=== PATIENT | female | born 1940 | race Caucasian/White ===

== ENCOUNTER → 2017-01-06 | Outpatient (CLI) | payer MEDICARE | LOC: WI 08:46 | PROVIDERS: ATTEND Internal Medicine Gastroenterology | DX: K52.831 Collagenous colitis (principal); R10.11 Right upper quadrant pain | CPT/HCPCS: 76705 ==

== ENCOUNTER → 2017-01-21 | Outpatient (CLI) | payer MEDICARE | LOC: RAD 12:23 | PROVIDERS: ATTEND Physician Assistant | DX: M50.30 Other cervical disc degeneration, unspecified cervical region (principal) | CPT/HCPCS: 72141 ==

== ENCOUNTER → 2018-03-01 | Outpatient (CLI) | payer MEDICARE ==
[2018-03-01 10:40] LABS: ABSOLUTE EOSINOPHILS # (AUTO) 0.1 10^3/uL (0.0-0.6); ABSOLUTE LYMPHOCYTES (AUTO) 1.5 10^3/uL (0.5-4.7); ABSOLUTE MONOCYTES (AUTO) 0.6 10^3/uL (0.1-1.4); ABSOLUTE NEUT (AUTO) 3.6 10^3/uL (1.7-8.2); BASOPHILS % (AUTO) 0.5 % (0-2); EOSINOPHILS % (AUTO) 1.2 % (0-6); HEMATOCRIT 38.3 % (36.0-47.0); HEMOGLOBIN 12.7 g/dL (12.0-15.5); LYMPHOCYTES % (AUTO) 26.2 % (13-45); MEAN CORPUSCULAR HEMOGLOBIN 23.7 pg (27.0-33.4); MEAN CORPUSCULAR HGB CONC 33.1 g/dL (32.0-36.0); MEAN CORPUSCULAR VOLUME 72 fl (80-97); MONOCYTES % (AUTO) 9.8 % (3-13); PLATELET COUNT 236 10^3/uL (150-450); RED BLOOD COUNT 5.35 10^6/uL (3.72-5.28); RED CELL DISTRIBUTION WIDTH 15.9 % (11.5-14.0); SEGMENTED NEUTROPHILS % (AUTO) 62.3 % (42-78); TOTAL CELLS COUNTED % (AUTO) 100 %; WHITE BLOOD COUNT 5.8 10^3/uL (4.0-10.5)
[2018-03-01 11:10] LABS: ALANINE AMINOTRANSFERASE 26 U/L (9-52); ALBUMIN 4.3 g/dL (3.5-5.0); ALKALINE PHOSPHATASE 64 U/L (38-126); ANION GAP 9 (5-19); ASPARTATE AMINO TRANSFERASE 22 U/L (14-36); BILIRUBIN,DIRECT 0.3 mg/dL (0.0-0.4); BILIRUBIN,TOTAL 0.5 mg/dL (0.2-1.3); BLOOD UREA NITROGEN 28 mg/dL (7-20); CALCIUM 10.8 mg/dL (8.4-10.2); CARBON DIOXIDE 31 mmol/L (22-30); CHLORIDE 103 mmol/L (98-107); GLUCOSE 112 mg/dL (75-110); POTASSIUM 5.4 mmol/L (3.6-5.0); SODIUM 142.8 mmol/L (137-145); TOTAL PROTEIN 7.2 g/dL (6.3-8.2); TRIGLYCERIDES 159 mg/dL (<150)
[2018-03-01 11:21] LABS: DIRECT LDL 121 mg/dL (<100)
[2018-03-01 11:22] LABS: VLDL CHOLESTEROL 31.8 mg/dL (10-31)
[2018-03-01 11:23] LABS: FREE T4 (FREE THYROXINE) 1.29 ng/dL (0.78-2.19)
[2018-03-01 11:37] LABS: THYROID STIMULATING HORMONE 0.87 uIU/mL (0.47-4.68)
== END ==
LOC: OD 10:12
PROVIDERS: ATTEND Internal Medicine
DX: E03.9 Hypothyroidism, unspecified (principal); E78.00 Pure hypercholesterolemia, unspecified; I10 Essential (primary) hypertension; Z79.899 Other long term (current) drug therapy
CPT/HCPCS: 36415; 80053; 80061; 84439; 84443; 85025

== ENCOUNTER 2018-03-28 13:31 | Emergency (ER) | payer MEDICARE ==
[2018-03-28] MEDS ORDERED: RABIES IMMUNE GLOBULIN INJ/PF 300 UNIT/2 ML SDV IM ONE ×2 (14:20→15:00)
--- NOTE | 2018-03-28 14:24 | ER Document Report ---
ED Animal Bite - General Chief Complaint: Cat Bite Stated Complaint: POSSIBLE CAT BITE Time Seen by Provider: 03/28/18 14:09 Mode of Arrival: Ambulatory Information source: Patient Notes: 77-year-old female presents to ED for complaint of cat bites or scratches to her right lower leg. She has 5 injuries to this leg. They look like probable scratches except for one. She states that the neighborhood cat and she does not know for sure who the cat belongs to or if it is immunizations are up-to- date. She states the cat does look healthy but she is concerned and would like to have the rabies shots. She states her tetanus shot is a year ago. TRAVEL OUTSIDE OF THE [place] IN LAST 30 DAYS: No - HPI Location of injury: [place] Severity of injury: Scratched, Bitten Onset: This morning Quality of pain: Sharp Pain Level: 3 Severity: Moderate Context of attack: "Provoked" attack - She states she stepped on his tail or foot Type of animal: Cat Appearance of animal: Appeared well Animal's immunizations: Unknown Animal captured or known: No Animal control notified: Yes Animal control form completed: Yes - Related Data Allergies/Adverse Reactions: adhesive [Adhesive] Allergy (Verified 03/28/18 13:32) latex [Latex] Allergy (Verified 03/28/18 13:32) Penicillins Allergy (Verified 03/28/18 13:32) Sulfa (Sulfonamide Antibiotics) Allergy (Verified 03/28/18 13:32) dordin Allergy (Uncoded 03/28/18 13:32) Past Medical History - General Information source: Patient - Social History Smoking Status: Never Smoker Cigarette use (# per day): No Chew tobacco use (# tins/day): No Smoking Education Provided: No Frequency of alcohol use: None Drug Abuse: None Lives with: Family Family History: Reviewed & Not Pertinent Patient has suicidal ideation: No Patient has homicidal ideation: No - Past Medical History Cardiac Medical History: Reports: Hx Hypercholesterolemia, Hx Hypertension Pulmonary Medical History: Reports: None EENT Medical History: Reports: None Endocrine Medical History: Reports: Hx Hypothyroidism Renal/ Medical History: Reports: None Malignancy Medical History: Reports: None GI Medical History: Reports: Hx Colonoscopy, Hx Endoscopy, Other - Colitis Musculoskeltal Medical History: Reports None Skin Medical History: 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 Psychiatric Medical History: Reports: Hx Anxiety, Hx Depression Traumatic Medical History: Reports: None Infectious Medical History: Reports: None Past Surgical History: Reports: Hx Breast Surgery - breast biopsy, Hx Dilation and Curettage - Immunizations Immunizations up to date: Yes Hx Diphtheria, Pertussis, Tetanus Vaccination: Yes Hx Pneumococcal Vaccination: 09/26/08 Review of Systems - Review of Systems Constitutional: No symptoms reported EENT: No symptoms reported Cardiovascular: No symptoms reported Respiratory: No symptoms reported Gastrointestinal: No symptoms reported Genitourinary: No symptoms reported Female Genitourinary: No symptoms reported Musculoskeletal: No symptoms reported Skin: Other - Cat bite/scratches to the right lower leg Hematologic/Lymphatic: No symptoms reported Neurological/Psychological: No symptoms reported -: Yes All other systems reviewed and negative Physical Exam - Vital signs Vitals: Temp Pulse Resp BP Pulse Ox 98.7 F 79 16 150/66 H 96 03/28/18 13:36 03/28/18 13:36 03/28/18 13:36 03/28/18 13:36 03/28/18 13:36 Interpretation: Normal - General General appearance: Appears well, Alert - HEENT Head: Normocephalic, Atraumatic Eyes: Normal Pupils: PERRL - Respiratory Respiratory status: No respiratory distress Chest status: Nontender Breath sounds: Normal Chest palpation: Normal - Cardiovascular Rhythm: Regular Heart sounds: Normal auscultation Murmur: No - Abdominal Inspection: Normal Distension: No distension Bowel sounds: Normal Tenderness: Nontender Organomegaly: No organomegaly - Back Back: Normal, Nontender - Extremities General upper extremity: Normal inspection, Nontender, Normal color, Normal ROM , Normal temperature General lower extremity: Nontender, Normal color, Normal ROM, Normal temperature , Normal weight bearing. No: George's sign Calf: Other - Cat bite/scratches 5 - Neurological Neuro grossly intact: Yes Cognition: Normal Orientation: AAOx4 [place] Coma Scale Eye Opening: Spontaneous [place] Coma Scale Verbal: Oriented [place] Coma Scale Motor: Obeys Commands [place] Coma Scale Total: 15 Speech: Normal Motor strength normal: LUE, RUE, LLE, RLE Sensory: Normal - Psychological Associated symptoms: Normal affect, Normal mood - Skin Skin Temperature: Warm Skin Moisture: Dry Skin Color: Normal Location of irregularity: Extremities - Cat scratches/bites to the right lower leg Course - Re-evaluation Re-evalutation: 03/28/18 21:36 Patient was given the rabies vaccine and immunoglobulin for her cat bite because she did not know his cat it was or if it had any immunizations. Patient states her tetanus is up-to-date. Patient was started on doxycycline as she is allergic to penicillin. Patient to follow-up with her primary doctor. Patient was given instructions on cleaning the wounds and use an antibiotic ointment to the areas. - Vital Signs Vital signs: Temp Pulse Resp BP Pulse Ox 97.8 F 71 14 184/75 H 97 03/28/18 15:27 03/28/18 15:27 03/28/18 15:27 03/28/18 15:27 03/28/18 15:27 Discharge - Discharge Clinical Impression: Cat bite of right lower leg Qualifiers: Encounter type: initial encounter Qualified Code(s): S81.851A - Open bite, right lower leg, initial encounter HTN (hypertension) Qualifiers: Hypertension type: unspecified Qualified Code(s): I10 - Essential (primary) hypertension Condition: Stable Disposition: HOME, SELF-CARE Additional Instructions: Animal Bites Animal bites are often heavily contaminated with bacteria. In spite of thorough cleansing and proper treatment, these wounds frequently become infected. Bite wounds of the hands are especially prone to complications. Bites are dressed, if possible. Large wounds may require suturing after internal cleansing. Because of infection risk, some large wounds must remain unstitched. Your doctor is trained to advise you on the best treatment for your bite. Call the doctor at once if the wound becomes red, swollen, warm, increasingly painful, or if it begins to drain. Danger signs also include red streaks up the involved extremity, swollen glands in the groin or under the arm , or fever and chills. The risk of rabies from domestic animals is very low. Bats, sick animals, and wild animals may expose you to rabies. The physician, or the health department, will inform you if you will need to receive the rabies vaccine. Doxycycline Doxycycline (Vibramycin, Doryx) is an antibiotic of the tetracycline family. This type of drug is useful for infections of the respiratory tract and genital tract, and is sometimes used for intestinal infections. Unlike most tetracyclines, doxycycline can be taken with food. It is longer acting, and (usually) less prone to side effects than regular tetracycline. Tetracycline antibiotics can stain immature teeth and SHOULD NOT BE TAKEN BY CHILDREN, NURSING MOTHERS, OR WOMEN. Tetracyclines can make you more prone to sunburn. Abdominal cramping, nausea, and diarrhea are occasional side effects. Women may experience vaginal yeast infections. Call the doctor at once if you develop hives, itching, shortness of breath , or lightheadedness. SOAP CLEANSING: Gently wash the wound daily using a mild soap (like Ivory, Phisoderm, Neutrogena). Use warm water, rubbing gently until all debris, ooze, and crusting have been washed from the wound. Allow to dry briefly (about 10 minutes) after cleaning. Repeat this cleansing at least three times a day for the first two days and then once or twice a day. ANTIBIOTIC OINTMENT PROTECTION: Your wounds are such that dressing them is not practical or optional. After cleansing, you should apply a thin coating of antibiotic ointment ( Bacitracin, not Neosporin) to the wounds at least three times daily. This lessens infection risk, and may decrease the amount of scarring. Use a q-tip or dull butter knife, not your finger, to apply this ointment. Any debris or ooze which builds up in the ointment should be gently rubbed off with a sterile gauze pad. Harder crusting may need to be gently scrubbed off with a clean wash cloth with soap and warm water, perhaps applying a warm, wet wash cloth to the wound for ten minutes first. Development of redness, severe itching, or blistering may mean allergy to the ointment. See the doctor. PROPHYLACTIC ANTIBIOTIC: The antibiotics which have been prescribed are designed to decrease the risk of infection. Only certain types of wounds benefit from this -- the typical cut, scrape, or burn DOES NOT require antibiotics. Of course, infection can still occur despite the use of prophylactic antibiotics. Your wound will heal with less chance of an infectious complication if you take the medication as directed. The most important dose is the FIRST dose, so don't delay filling the prescription! Acetaminophen Acetaminophen may be taken for pain relief or fever control. It's much safer than aspirin, offering a wider range of "safe" dosages. It is safe during . Some brand names are Tylenol, Panadol, Datril, Anacin 3, Tempra, and Liquiprin. Acetaminophen can be repeated every four hours. The following are maximum recommended dosages: WEIGHT Dose Drops Elixir Chewable( 80mg) (LBS.) drprs=droppers tsp=teaspoon 6 40 mg .4 ml (1/2) 6-11 80 mg .8 ml (full) 1/2 tsp 1 tab 12-16 120 mg 1 1/2 drprs 3/4 tsp 1 1/2 tabs 17-23 160 mg 2 drprs 1 tsp 2 tabs 24-30 240 mg 3 drprs 1 1/2 tsp 3 tabs 30-35 320 mg 2 tsp 4 tabs 36-41 360 mg 2 1/4 tsp 4 1 /2 tabs 42-47 400 mg 2 1/2 tsp 5 tabs 48-53 480 mg 3 tsp 6 tabs 54-59 520 mg 3 1/4 tsp 6 1 /2 tabs 60-64 560 mg 3 1/2 tsp 7 tabs 65-70 600 mg 3 3/4 tsp 7 1 /2 tabs 71-76 640 mg 4 tsp 8 tabs 77-82 720 mg 4 1/2 tsp 9 tabs 83-88 800 mg 5 tsp 10 tabs >89 pounds or adults 650 mg to 900 mg Acetaminophen can be repeated every four hours. Maximum daily dose not to exceed 4000 mg. These maximum recommended dosages are slightly higher than the dosages written on the product container, but these dosages are very safe and well below the toxic dosage for acetaminophen. Rabies Prophyllaxis Rabies immunization can prevent infection with the rabies virus. This virus is always fatal if it reaches the nervous system. Exposure to an infected animal's saliva requires a series of shots. If you're already immunized, you may need only a booster shot. It's critical for you to follow the exact schedule of immunizations. After the first shot, we give repeat doses in 3 days, 7 days, and 14 days. The repeat doses can also be given through the Health Department or by special arrangement with your doctor. Ibuprofen or acetaminophen can be used for aching and swelling at the injection site. Call the doctor or return if you develop increasing pain, fever , chills, or spreading redness, or if you become short of breath or faint. FOLLOW-UP CARE: If you have been referred to a physician for follow-up care, call the physician s office for an appointment as you were instructed or within the next two days. If you experience worsening or a significant change in your symptoms, notify the physician immediately or return to the Emergency Department at any time for re-evaluation. Prescriptions: Doxycycline Hyclate 100 mg PO BID #20 tablet Forms: Elevated Blood Pressure Referrals: DEREK MEDINA MD [Primary Care Provider] - Follow up as needed
[2018-03-28] MEDS ORDERED: DOXYCYCLINE HYCLATE 100 MG TABLET PO ONE (14:31)
[2018-03-28] MEDS ORDERED: ONDANSETRON 4 MG TAB.RAPDIS PO ONE (15:29)
[2018-03-31] MEDS ORDERED: RABIES VACCINE (PCEC)/PF 2.5 UNIT/1 ML KIT IM ONE (11:00)
== END 2018-03-28 15:46 | disposition home or self-care (01) ==
LOC: ER 13:31
DX: S81.851A Open bite, right lower leg, initial encounter (principal); W55.01XA Bitten by cat, initial encounter; Z91.040 Latex allergy status; E78.00 Pure hypercholesterolemia, unspecified; I10 Essential (primary) hypertension; E03.9 Hypothyroidism, unspecified; Z88.2 Allergy status to sulfonamides; Z88.0 Allergy status to penicillin; Z23 Encounter for immunization
CPT/HCPCS: 99283; 90471; 90376; A9270 ×2; S0119

== ENCOUNTER 2018-05-21 09:58 | Emergency (ER) | payer MEDICARE ==
[2018-05-21] MEDS ORDERED: ASPIRIN 81 MG TABLET, CHEWABLE PO ONE (10:42)
[2018-05-21] MEDS ORDERED: MAG HYDROX/AL HYDROX/SIMETH SUSP 30 ML UDCUP PO ONE (10:42)
[2018-05-21] MEDS ORDERED: LIDOCAINE 2% VISCOUS SOLN 20 ML UDCUP PO ONE (10:42)
[2018-05-21] MEDS ORDERED: METOCLOPRAMIDE HCL ORAL SOLN 10 MG/10 ML UDCUP PO ONE (10:42)
--- NOTE | 2018-05-21 10:53 | ER Document Report ---
ED Medical Screen (RME) - General Chief Complaint: Chest Pain Stated Complaint: CHEST PAIN Time Seen by Provider: 05/21/18 10:42 TRAVEL OUTSIDE OF THE [place] 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 She has had a similar episode in the past approximately one year prior which time she underwent an evaluation and was told that everything checked out okay. - Related Data Allergies/Adverse Reactions: adhesive [Adhesive] Allergy (Verified 05/21/18 10:41) latex [Latex] Allergy (Verified 05/21/18 10:41) Penicillins Allergy (Verified 05/21/18 10:41) Sulfa (Sulfonamide Antibiotics) Allergy (Verified 05/21/18 10:41) dordin Allergy (Uncoded 05/21/18 10:41) Past Medical History - Social History Chew tobacco use (# tins/day): No Frequency of alcohol use: None Drug Abuse: None - Past Medical History Cardiac Medical History: Reports: Hx Hypercholesterolemia, Hx Hypertension Endocrine Medical History: Reports: Hx Hypothyroidism Renal/ Medical History: Denies: Hx Peritoneal Dialysis GI Medical History: Reports: Hx Colonoscopy, Hx Endoscopy Psychiatric Medical History: Reports: Hx Anxiety, Hx Depression Past Surgical History: Reports: Hx Breast Surgery - breast biopsy, Hx Dilation and Curettage, Hx Gynecologic Surgery - D&C, Hx Tubal Ligation - Immunizations Immunizations up to date: Yes Hx Diphtheria, Pertussis, Tetanus Vaccination: Yes Physical Exam - Vital signs Vitals: Temp Pulse Resp BP Pulse Ox 98.1 F 71 14 148/61 H 94 05/21/18 10:11 05/21/18 10:11 05/21/18 10:11 05/21/18 10:11 05/21/18 10:11 Course - Re-evaluation Re-evalutation: 05/21/18 10:58 77-year-old female presents for evaluation of atypical chest pain with some bloating and pressure. She does have some chest discomfort and abdominal discomfort associated with this. Does have a history of colitis. Has never had a heart attack that she knows of. Her EKG is abnormal but without any obvious change from previous. We will initiate a cardiac evaluation for this patient administer a GI cocktail for potential gastritis colitis pain. Patient will be given aspirin have 2 troponins drawn be placed on monitor. - Vital Signs Vital signs: Temp Pulse Resp BP Pulse Ox 98.1 F 71 14 148/61 H 94 05/21/18 10:11 05/21/18 10:11 05/21/18 10:11 05/21/18 10:11 05/21/18 10:11 Doctor's Discharge - Discharge Referrals: DEREK MEDINA MD [Primary Care Provider] - Follow up as needed
[2018-05-21 11:36] LABS: ABSOLUTE EOSINOPHILS # (AUTO) 0.1 10^3/uL (0.0-0.6); ABSOLUTE LYMPHOCYTES (AUTO) 1.5 10^3/uL (0.5-4.7); ABSOLUTE MONOCYTES (AUTO) 0.5 10^3/uL (0.1-1.4); ABSOLUTE NEUT (AUTO) 2.9 10^3/uL (1.7-8.2); BASOPHILS % (AUTO) 0.5 % (0-2); EOSINOPHILS % (AUTO) 1.4 % (0-6); HEMATOCRIT 37.3 % (36.0-47.0); HEMOGLOBIN 12.5 g/dL (12.0-15.5); LYMPHOCYTES % (AUTO) 30.3 % (13-45); MEAN CORPUSCULAR HGB CONC 33.4 g/dL (32.0-36.0); MEAN CORPUSCULAR VOLUME 72 fl (80-97); MONOCYTES % (AUTO) 9.8 % (3-13); PLATELET COUNT 262 10^3/uL (150-450); RED BLOOD COUNT 5.19 10^6/uL (3.72-5.28); RED CELL DISTRIBUTION WIDTH 16.6 % (11.5-14.0); TOTAL CELLS COUNTED % (AUTO) 100 %; WHITE BLOOD COUNT 5.1 10^3/uL (4.0-10.5)
--- NOTE | 2018-05-21 11:43 | RADIOLOGY REPORT (SQ) ---
EXAM DESCRIPTION: CHEST 2 VIEWS COMPLETED DATE/TIME: 05/21/2018 11:35 am REASON FOR STUDY: chest pain COMPARISON: 10/27/2014. NUMBER OF VIEWS: Two view. TECHNIQUE: Frontal and lateral radiographic views of the chest acquired. LIMITATIONS: None. FINDINGS: LUNGS AND PLEURA: No opacities, masses or pneumothorax. No pleural effusion. Attenuated bl ood vessels and flattened vito-diaphragms. MEDIASTINUM AND HILAR STRUCTURES: No masses. No contour abnormalities. HEART AND VASCULAR STRUCTURES: Heart normal in size and contour. No evidence for failure. BONES: No acute findings. HARDWARE: None in the chest. OTHER: No other significant finding. IMPRESSION: COPD. NO ACUTE RADIOGRAPHIC FINDING IN THE CHEST. TECHNICAL DOCUMENTATION: JOB ID: [id number] [employer]- All Rights Reserved Reading location - IP/workstation name: [email or web address]
[2018-05-21 11:55] LABS: ALANINE AMINOTRANSFERASE 24 U/L (9-52); ALBUMIN 4.4 g/dL (3.5-5.0); ALKALINE PHOSPHATASE 65 U/L (38-126); ANION GAP 12 (5-19); ASPARTATE AMINO TRANSFERASE 21 U/L (14-36); BILIRUBIN,DIRECT 0.3 mg/dL (0.0-0.4); BILIRUBIN,TOTAL 0.5 mg/dL (0.2-1.3); BLOOD UREA NITROGEN 22 mg/dL (7-20); CALCIUM 10.1 mg/dL (8.4-10.2); CARBON DIOXIDE 26 mmol/L (22-30); CHLORIDE 104 mmol/L (98-107); CREATINE KINASE 48 U/L (30-135); GLUCOSE 111 mg/dL (75-110); POTASSIUM 4.3 mmol/L (3.6-5.0); SODIUM 142.3 mmol/L (137-145); TOTAL PROTEIN 7.3 g/dL (6.3-8.2)
[2018-05-21 12:14] LABS: CREATINE KINASE MB 1.37 ng/mL (<4.55)
[2018-05-21 12:21] LABS: TROPONIN I < 0.012 ng/mL
--- NOTE | 2018-05-21 13:39 | ER Document Report ---
ED General - General Chief Complaint: Chest Pain Stated Complaint: CHEST PAIN Time Seen by Provider: 05/21/18 10:42 TRAVEL OUTSIDE OF THE [place] IN LAST 30 DAYS: No - HPI Patient complains to provider of: Epigastric pain radiating to the chest Notes: Patient coming in for epigastric pain and burning sensation radiating anterior chest ongoing for greater than 12 hours. Patient states pain started after eating chicken fried steak night prior. Patient denies any cardiac history patient denies any nausea vomiting fevers or chills. Patient resting comfortably upon my evaluation. Patient denies any recent travel requesting to drink her Ensure and boost drink upon my evaluation patient states that her pain has not totally resolved after receiving a GI cocktail in the triage area - Related Data Allergies/Adverse Reactions: adhesive [Adhesive] Allergy (Verified 05/21/18 10:41) latex [Latex] Allergy (Verified 05/21/18 10:41) Penicillins Allergy (Verified 05/21/18 10:41) Sulfa (Sulfonamide Antibiotics) Allergy (Verified 05/21/18 10:41) dordin Allergy (Uncoded 05/21/18 10:41) Past Medical History - Social History Smoking Status: Never Smoker Chew tobacco use (# tins/day): No Frequency of alcohol use: None Drug Abuse: None Family History: Reviewed & Not Pertinent Patient has suicidal ideation: No Patient has homicidal ideation: No - Past Medical History Cardiac Medical History: Reports: Hx Hypercholesterolemia, Hx Hypertension Endocrine Medical History: Reports: Hx Hypothyroidism Renal/ Medical History: Denies: Hx Peritoneal Dialysis GI Medical History: Reports: Hx Colonoscopy, Hx Endoscopy Psychiatric Medical History: Reports: Hx Anxiety, Hx Depression Past Surgical History: Reports: Hx Breast Surgery - breast biopsy, Hx Dilation and Curettage, Hx Gynecologic Surgery - D&C, Hx Tubal Ligation - Immunizations Immunizations up to date: Yes Hx Diphtheria, Pertussis, Tetanus Vaccination: Yes Hx Pneumococcal Vaccination: 09/26/08 Review of Systems - Review of Systems Constitutional: No symptoms reported EENT: No symptoms reported Cardiovascular: No symptoms reported Respiratory: No symptoms reported Gastrointestinal: Abdominal pain Genitourinary: No symptoms reported Female Genitourinary: No symptoms reported Musculoskeletal: No symptoms reported Skin: No symptoms reported Hematologic/Lymphatic: No symptoms reported Neurological/Psychological: No symptoms reported -: Yes All other systems reviewed and negative Physical Exam - Vital signs Vitals: Temp Pulse Resp BP Pulse Ox 98.1 F 71 14 148/61 H 94 05/21/18 10:11 05/21/18 10:11 05/21/18 10:11 05/21/18 10:11 05/21/18 10:11 Interpretation: Normal - General General appearance: Appears well, Alert - HEENT Head: Normocephalic, Atraumatic Eyes: Normal Pupils: PERRL - Respiratory Respiratory status: No respiratory distress Chest status: Nontender Breath sounds: Normal Chest palpation: Normal - Cardiovascular Rhythm: Regular Heart sounds: Normal auscultation Murmur: No - Abdominal Inspection: Normal Distension: No distension Bowel sounds: Normal Tenderness: Nontender Organomegaly: No organomegaly - Back Back: Normal, Nontender - Extremities General upper extremity: Normal inspection, Nontender, Normal color, Normal ROM , Normal temperature General lower extremity: Normal inspection, Nontender, Normal color, Normal ROM , Normal temperature, Normal weight bearing. No: George's sign - Neurological Neuro grossly intact: Yes Cognition: Normal Orientation: AAOx4 Paul Coma Scale Eye Opening: Spontaneous Paul Coma Scale Verbal: Oriented Paul Coma Scale Motor: Obeys Commands Paul Coma Scale Total: 15 Speech: Normal Motor strength normal: LUE, RUE, LLE, RLE Sensory: Normal - Psychological Associated symptoms: Normal affect, Normal mood - Skin Skin Temperature: Warm Skin Moisture: Dry Skin Color: Normal Course - Re-evaluation Re-evalutation: 05/21/18 15:37 The patient has atypical chest pain as the patient's chest pain is not suggestive of pulmonary embolus, cardiac ischemia, aortic dissection, or other serious etiology. Given the extremely low risk of these diagnoses further testing and evaluation for these possibilities does not appear to be indicated at this time. The patient has been instructed to return if the symptoms worsen or change in any way. EKG troponin chest x-ray did not show any critical pathology. Patient will be discharged home follow-up with primary care physician more likely has reflux gastritis for the patient's etiology pain. Patient was advised not to eat fried or greasy food. Patient states understanding tolerating p.o. here - Vital Signs Vital signs: Temp Pulse Resp BP Pulse Ox 98.4 F 88 18 148/74 H 100 05/21/18 14:03 05/21/18 14:03 05/21/18 14:03 05/21/18 14:03 05/21/18 14:03 - Laboratory Result Diagrams: 05/21/18 10:53 05/21/18 10:53 Laboratory results interpreted by me: 05/21/18 05/21/18 10:53 10:53 MCV 72 L MCH 24.0 L RDW 16.6 H BUN 22 H Glucose 111 H Discharge - Discharge Clinical Impression: Epigastric abdominal pain Condition: Good Disposition: HOME, SELF-CARE Instructions: Reflux Disease (GERD) ([facility]) Additional Instructions: Your evaluation is consistent with acid reflux causing her pain. Your EKG and cardiac enzymes chest x-ray did not show any acute cause. Your liver enzymes and pancreatic enzymes are also negative. The medication that we gave you is there to aid with acid reflux. Would recommend a bland diet avoiding foods that are fried or greasy. Please take medications as prescribed return to the ER for any concerning issues follow-up with your primary care physician approximately one week. Prescriptions: Omeprazole 20 mg PO DAILY #20 capsule. Sucralfate [Carafate 1 gm Tablet] 1 gm PO ACHS #120 tablet Forms: Return to Work Referrals: DEREK MEDINA MD [Primary Care Provider] - Follow up as needed
[2018-05-21 14:04] VITALS: BP 148/74
--- NOTE | 2018-05-22 07:50 | EKG REPORT ---
SEVERITY:- ABNORMAL ECG - SINUS RHYTHM BORDERLINE ST ABNORMALITIES, DIFFUSE : Confirmed by: Jm Lugo MD 22-May-2018 07:48:31
== END 2018-05-21 14:04 | disposition home or self-care (01) ==
LOC: ER 09:58
DX: R10.13 Epigastric pain (principal); R07.89 Other chest pain; I10 Essential (primary) hypertension; Z91.048 Other nonmedicinal substance allergy status; Z91.040 Latex allergy status; Z88.0 Allergy status to penicillin; Z88.2 Allergy status to sulfonamides
CPT/HCPCS: 93005; 99285; 36415; 82553; 82550; 83690; 85025; 80053; 84484; 71046; 93010; A9270 ×2; J3490

== ENCOUNTER → 2018-11-23 | Outpatient (CLI) | payer MEDICARE ==
--- NOTE | 2018-11-23 12:30 | RADIOLOGY REPORT (SQ) ---
EXAM DESCRIPTION: MRI LUMBAR SPINE WITHOUT COMPLETED DATE/TIME: 11/23/2018 11:26 am REASON FOR STUDY: LOW BACK PAIN (M54.5) M54.5 LOW BACK PAIN COMPARISON: MRI lumbar spine 04/05/2014 TECHNIQUE: Sagittal and Axial imaging includes T1, T2, STIR and gradient echo sequences. Coronal T2/ HASTE imaging. LIMITATIONS: None. FINDINGS: VISUALIZED UPPER ABDOMEN: Limited evaluation. No acute or suspicious findings suggested. SEGMENTATION: No transitional anatomy. The lowest well-developed disc space is labeled L5-S1. ALIGNMENT: Grade 1 anterolisthesis of L4 over L5 related to advanced facet arthropathy. VERTEBRAE: Intact. BONE MARROW: Mild fatty reactive vertebral body endplate changes, upper endplate L3, lower endplate L 5 DISC SIGNAL: Diffuse decreased T2 weighted intervertebral disc signal. POSTERIOR ELEMENTS: Generally intact. No pars defect evident. HARDWARE: None in the spine. CORD AND CONUS: Normal in size and signal intensity. Conus at the appropriate level. SOFT TISSUES: No aortic aneurysm seen. No bulky retroperitoneal adenopathy or mass. No paraspinal mas s or fluid. T11-12: At the upper edge of the field of view. Minimal posterior disc bulging. Mild bilateral fac et hypertrophy. No central or foraminal encroachment. T12-L1: Very mild posterior disc bulging and mild facet and ligament hypertrophy. No central or for aminal stenosis. L1-L2: Mild diffuse posterior disc bulging, mild bilateral facet and ligament hypertrophy. Borderlin e central canal narrowing. Mild bilateral foraminal narrowing without exiting L1 nerve root impingem ent. L2-L3: Broad diffuse posterior disc bulging, bulky bilateral facet and ligament hypertrophy causes mo derate central canal stenosis best shown on axial T2 image 10. There is mild bilateral foraminal jim rowing without exit L2 nerve root impingement. L3-L4: Broad diffuse posterior disc bulge and bulky bilateral facet and ligament hypertrophy causes m oderate to high-grade central canal stenosis best shown on axial T2 image 16. There is mild bilatera l inferior foraminal narrowing without exiting L3 nerve root impingement. L4-L5: High-grade central canal stenosis results from grade 1 anterolisthesis of L4 over L5, bulky bi lateral facet and ligament hypertrophy, and broad diffuse posterior disc bulge. This is best shown o n axial T2 image 22. There is mild bilateral L4-5 foraminal narrowing without exiting L4 nerve root impingement. L5-S1: Minimal posterior disc bulging, mild facet and ligament hypertrophy. No central or foraminal encroachment SACRUM: Visualized upper sacrum intact. OTHER: No other significant findings. IMPRESSION: High-grade central canal stenosis at L4-5 TECHNICAL DOCUMENTATION: JOB ID: [id number] [employer]- All Rights Reserved Reading location - IP/workstation name: [email or web address]
== END ==
LOC: RAD 10:18
PROVIDERS: ATTEND Physician Assistant
DX: M54.5 Low back pain (principal); M48.061 Spinal stenosis, lumbar region without neurogenic claudication
CPT/HCPCS: 72148

== ENCOUNTER → 2019-01-24 | Outpatient (CLI) | payer MEDICARE ==
--- NOTE | 2019-01-24 11:36 | RADIOLOGY REPORT (SQ) ---
EXAM DESCRIPTION: L SPINE 2 VIEWS COMPLETED DATE/TIME: 01/24/2019 10:29 am REASON FOR STUDY: SPINAL STENOSIS, LUMBAR REGION (M48.061), SPONDYLOLISTHESIS, LUMBAR REGION M48.061 SPINAL STENOSIS, LUMBAR REGION WITHOUT NEUROGENIC CL M43.16 SPONDYLOLISTHESIS, LUMBAR REGION COMPARISON: MRI of 11/23/2018 NUMBER OF VIEWS: Two views. TECHNIQUE: AP and lateral radiographic images acquired of the lumbar spine. LIMITATIONS: None. FINDINGS: MINERALIZATION: Normal. SEGMENTATION: Normal. No transitional anatomy. ALIGNMENT: Mild anterolisthesis L4 with respect L5. VERTEBRAE: Maintained height. No fracture or worrisome bone lesion. DISCS: Mild disc space narrowing L4-L5. POSTERIOR ELEMENTS: Pedicles and facets are intact. No pars defect or posterior arch defects. HARDWARE: None in the spine. PARASPINAL SOFT TISSUES: Normal. PELVIS: Intact as visualized. No fractures or worrisome bone lesions. SI joints intact. OTHER: No other significant finding. IMPRESSION: Mild anterolisthesis L4 with respect L5. Mild disc space narrowing L4-L5. TECHNICAL DOCUMENTATION: JOB ID: [id number] [employer]- All Rights Reserved Reading location - IP/workstation name: [email or web address]
--- NOTE | 2019-01-24 11:42 | RADIOLOGY REPORT (SQ) ---
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 16 SPONDYLOLISTHESIS, LUMBAR REGION COMPARISON: None. TECHNIQUE: Lateral flexion and extension radiographs of the spine. NUMBER OF VIEWS: Two views. LIMITATIONS: None. FINDINGS: 1 cm anterolisthesis L4 with respect L5 stable in flexion and extension. OTHER: Mild disc space narrowing L4-L5. IMPRESSION: NO RADIOGRAPHIC EVIDENCE OF ABNORMAL MOTION. TECHNICAL DOCUMENTATION: JOB ID: [id number] [employer]- All Rights Reserved Reading location - IP/workstation name: [email or web address]
== END ==
LOC: RAD 10:10
PROVIDERS: ATTEND Physician Assistant
DX: M48.061 Spinal stenosis, lumbar region without neurogenic claudication (principal); M43.16 Spondylolisthesis, lumbar region
CPT/HCPCS: 72100; 72120

== ENCOUNTER → 2019-03-05 | Outpatient (CLI) | payer MEDICARE ==
[2019-03-05 11:05] LABS: ABSOLUTE EOSINOPHILS # (AUTO) 0.1 10^3/uL (0.0-0.6); ABSOLUTE LYMPHOCYTES (AUTO) 1.6 10^3/uL (0.5-4.7); ABSOLUTE MONOCYTES (AUTO) 0.6 10^3/uL (0.1-1.4); ABSOLUTE NEUT (AUTO) 2.4 10^3/uL (1.7-8.2); BASOPHILS % (AUTO) 0.6 % (0-2); EOSINOPHILS % (AUTO) 1.4 % (0-6); HEMATOCRIT 36.2 % (36.0-47.0); HEMOGLOBIN 11.8 g/dL (12.0-15.5); LYMPHOCYTES % (AUTO) 34.2 % (13-45); MEAN CORPUSCULAR HEMOGLOBIN 22.5 pg (27.0-33.4); MEAN CORPUSCULAR HGB CONC 32.7 g/dL (32.0-36.0); MEAN CORPUSCULAR VOLUME 69 fl (80-97); MONOCYTES % (AUTO) 12.1 % (3-13); PLATELET COUNT 230 10^3/uL (150-450); RED BLOOD COUNT 5.27 10^6/uL (3.72-5.28); RED CELL DISTRIBUTION WIDTH 16.5 % (11.5-14.0); SEGMENTED NEUTROPHILS % (AUTO) 51.7 % (42-78); TOTAL CELLS COUNTED % (AUTO) 100 %; WHITE BLOOD COUNT 4.6 10^3/uL (4.0-10.5)
[2019-03-05 11:24] LABS: ALANINE AMINOTRANSFERASE 22 U/L (9-52); ALBUMIN 4.4 g/dL (3.5-5.0); ALKALINE PHOSPHATASE 63 U/L (38-126); ANION GAP 9 (5-19); ASPARTATE AMINO TRANSFERASE 20 U/L (14-36); BILIRUBIN,DIRECT 0.3 mg/dL (0.0-0.4); BILIRUBIN,TOTAL 0.5 mg/dL (0.2-1.3); BLOOD UREA NITROGEN 24 mg/dL (7-20); CALCIUM 10.4 mg/dL (8.4-10.2); CARBON DIOXIDE 27 mmol/L (22-30); CHLORIDE 104 mmol/L (98-107); CHOLESTEROL 171.82 mg/dL (0-200); GLUCOSE 115 mg/dL (75-110); POTASSIUM 4.4 mmol/L (3.6-5.0); SODIUM 140.2 mmol/L (137-145); TRIGLYCERIDES 117 mg/dL (<150)
[2019-03-05 11:47] LABS: DIRECT LDL 111 mg/dL (<100)
[2019-03-05 11:58] LABS: FREE T4 (FREE THYROXINE) 1.19 ng/dL (0.78-2.19)
[2019-03-05 12:12] LABS: THYROID STIMULATING HORMONE 1.09 uIU/mL (0.47-4.68)
== END ==
LOC: OD 09:38
PROVIDERS: ATTEND Internal Medicine
DX: E78.00 Pure hypercholesterolemia, unspecified (principal); I10 Essential (primary) hypertension; E03.9 Hypothyroidism, unspecified; R73.9 Hyperglycemia, unspecified; R63.4 Abnormal weight loss; Z79.899 Other long term (current) drug therapy
CPT/HCPCS: 36415; 80053; 80061; 84439; 84443; 85025

== ENCOUNTER → 2020-05-23 | Outpatient (CLI) | payer MEDICARE ==
[2020-05-23 11:24] LABS: ABSOLUTE EOSINOPHILS # (AUTO) 0.1 10^3/uL (0.0-0.6); ABSOLUTE LYMPHOCYTES (AUTO) 1.6 10^3/uL (0.5-4.7); ABSOLUTE MONOCYTES (AUTO) 0.5 10^3/uL (0.1-1.4); ABSOLUTE NEUT (AUTO) 3.2 10^3/uL (1.7-8.2); BASOPHILS % (AUTO) 0.3 % (0-2); EOSINOPHILS % (AUTO) 1.2 % (0-6); HEMATOCRIT 35.4 % (36.0-47.0); HEMOGLOBIN 11.8 g/dL (12.0-15.5); LYMPHOCYTES % (AUTO) 29.1 % (13-45); MEAN CORPUSCULAR HEMOGLOBIN 22.8 pg (27.0-33.4); MEAN CORPUSCULAR HGB CONC 33.3 g/dL (32.0-36.0); MEAN CORPUSCULAR VOLUME 69 fl (80-97); MONOCYTES % (AUTO) 10.2 % (3-13); PLATELET COUNT 235 10^3/uL (150-450); RED BLOOD COUNT 5.16 10^6/uL (3.72-5.28); SEGMENTED NEUTROPHILS % (AUTO) 59.2 % (42-78); TOTAL CELLS COUNTED % (AUTO) 100 %; WHITE BLOOD COUNT 5.4 10^3/uL (4.0-10.5)
[2020-05-23 11:46] LABS: ALBUMIN 4.7 g/dL (3.5-5.0); ALKALINE PHOSPHATASE 62 U/L (38-126); ANION GAP 10 (5-19); ASPARTATE AMINO TRANSFERASE 25 U/L (14-36); BILIRUBIN,DIRECT 0.3 mg/dL (0.0-0.4); BILIRUBIN,TOTAL 0.6 mg/dL (0.2-1.3); BLOOD UREA NITROGEN 27 mg/dL (7-20); CALCIUM 10.4 mg/dL (8.4-10.2); CARBON DIOXIDE 31 mmol/L (22-30); CHLORIDE 101 mmol/L (98-107); GLUCOSE 118 mg/dL (75-110); POTASSIUM 4.5 mmol/L (3.6-5.0); TOTAL PROTEIN 7.5 g/dL (6.3-8.2); TRIGLYCERIDES 167 mg/dL (<150)
[2020-05-23 11:58] LABS: DIRECT LDL 109 mg/dL (<100); VLDL CHOLESTEROL 33.4 mg/dL (10-31)
== END ==
LOC: OD 09:57
PROVIDERS: ATTEND Internal Medicine
DX: I10 Essential (primary) hypertension (principal); K52.832 Lymphocytic colitis; E78.00 Pure hypercholesterolemia, unspecified; Z79.899 Other long term (current) drug therapy
CPT/HCPCS: 36415; 80053; 80061; 85025